=== PATIENT | female | born 1975 | race Caucasian/White ===

== ENCOUNTER 2017-10-14 06:12 | Emergency (ER) | payer SELFPAY ==
[2017-10-14 06:37] VITALS: TEMP 96.2
[2017-10-14] MEDS ORDERED: LIDOCAINE 1% 10 ML VIAL INJ ONE (07:09)
[2017-10-14] MEDS ORDERED: POVIDONE IODINE 10 % 15 ML UD TOP ONE (07:11)
--- NOTE | 2017-10-14 07:28 | ED.PDOC ---
History of Present Illness - General Chief Complaint: General Stated Complaint: left shoulder cyst Time Seen by Provider: 10/14/17 06:53 Source: patient Exam Limitations: no limitations - History of Present Illness Timing/Duration: other - worsened over the last 48 hours, nothing has improved or worsened condition Severity: mild Improving Factors: nothing Allergies/Adverse Reactions: Allergies NO KNOWN ALLERGY Allergy (Verified 10/14/17 06:37) Home Medications: Ambulatory Orders Clindamycin HCl 300 mg PO Q6HR 7 Days #28 cap 10/14/17 Multiple Vitamins W/ Minerals [Multivitamin Adults] 1 tab PO DAILY 10/14/17 Tramadol HCl [Ultram] 50 mg PO Q6HR PRN #12 tab 10/14/17 Review of Systems - Review of Systems Constitutional: States: no symptoms reported EENTM: States: no symptoms reported Respiratory: States: no symptoms reported Cardiology: States: no symptoms reported Gastrointestinal/Abdominal: States: no symptoms reported Past Medical History (General) - Patient Medical History Hx Seizures: No Hx Stroke: No Hx Dementia: No Hx Asthma: No Hx of COPD: No Hx Cardiac Disorders: No Hx Congestive Heart Failure: No Hx Pacemaker: No Hx Hypertension: No Hx Thyroid Disease: No Hx Diabetes: No Hx Gastroesophageal Reflux: No Hx Renal Disease: No Hx Cancer: No Hx of HIV: No Hx Hepatitis C: No Hx MRSA: No Surgical History: no surgical history - Vaccination History Hx Tetanus, Diphtheria Vaccination: No Hx Influenza Vaccination: No - Social History Hx Tobacco Use: No Hx Alcohol Use: No Hx Substance Use: No Hx Substance Use Treatment: No Hx Depression: No Family Medical History - Family History Mother Family History: Unknown Physical Exam - Physical Exam General Appearance: Anxious Ears, Nose, Throat: hearing grossly normal Neck: non-tender, full range of motion, supple Respiratory: no respiratory distress, no accessory muscle use Cardiovascular/Chest: no edema, no JVD Gastrointestinal/Abdominal: other - no distention Back Exam: no vertebral tenderness Extremity: normal range of motion Skin Exam: other - 3 cm abscess to the left upper back, 3 cm of surrounding cellulitis Procedures - Incision and Drainage #1 Site: left upper back Procedure and Prep: betadine prep, sterile drapes applied, sterile dressings applied, irrigated, pus drained Blade Size: 11 Procedure Comments: lidocaine with epi 1 cc. drained 4 cc Departure - Departure Clinical Impression: Abscess, Cellulitis Time of Disposition: 07:25 Disposition: Discharge to Home or Self Care Condition: Excellent Departure Forms: ED Discharge - Pt. Copy, Patient Portal Self Enrollment Instructions: DI for Skin Abscess, Cellulitis Diet: regular diet Activity: increase activity as tolerated Prescriptions: Clindamycin HCl 300 mg PO Q6HR 7 Days #28 cap Tramadol HCl [Ultram] 50 mg PO Q6HR PRN #12 tab PRN Reason: Pain Home Medications: Ambulatory Orders Clindamycin HCl 300 mg PO Q6HR 7 Days #28 cap 10/14/17 Multiple Vitamins W/ Minerals [Multivitamin Adults] 1 tab PO DAILY 10/14/17 Tramadol HCl [Ultram] 50 mg PO Q6HR PRN #12 tab 10/14/17 Additional Instructions: Please perform warm compresses a minimum of 2 times daily. Apply a warm wet rag to the affected site; let sit for 10-15 minutes and then apply gentle pressure. Return if spreading redness, fever or worsening of condition
[2017-10-14 07:53] VITALS: BP 124/86; O2SAT 98
== END 2017-10-14 07:41 | disposition home or self-care (01) ==
LOC: ER 06:12
DX: L02.212 Cutaneous abscess of back [any part, except buttock and flank] (principal)